=== PATIENT | male | born 1990 | race Caucasian/White ===

== ENCOUNTER 2018-01-14 01:55 | Emergency (ER) | payer BC, MEDICAID ==
[~2018-01-14] VITALS: Ht 195.6 cm; Wt 90.7 kg
[2018-01-14 01:58] VITALS: BP 139/72
[2018-01-14] MEDS ORDERED: IBUPROFEN 400 MG TABLET ONE (02:13)
[2018-01-14] MEDS ORDERED: HYDROCODONE/APAP 10/325MG 1 EA TABLET ONE (02:13)
[2018-01-14] MEDS ORDERED: HYDROCODONE/APAP 10/325MG 1 EA TABLET PO ONE (02:30)
[2018-01-14] MEDS ORDERED: IBUPROFEN 400 MG TABLET PO ONE (02:30)
== END 2018-01-14 03:07 | disposition home or self-care (01) ==
LOC: ER 01:59
DX: S46.811A Strain of other muscles, fascia and tendons at shoulder and upper arm level, right arm, initial encounter (principal); W01.0XXA Fall on same level from slipping, tripping and stumbling without subsequent striking against object, initial encounter; Y93.89 Activity, other specified; Y92.89 Other specified places as the place of occurrence of the external cause; Y99.8 Other external cause status
CPT/HCPCS: 73080; 99284; A4606; Z7610